=== PATIENT | male | born 1980 | race Caucasian/White ===

== ENCOUNTER 2018-12-05 21:25 | Emergency (ER) | payer OTHER ==
[~2018-12-05] VITALS: Ht 172.7 cm; Wt 93.0 kg
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
[2018-12-05 22:02] LABS: BASOPHILS # (AUTO) 0.01 x10^3/uL (0-0.1); BASOPHILS % (AUTO) 0 % (0-1); EOSINOPHILS # (AUTO) 0.03 x10^3/uL (0-0.4); EOSINOPHILS % (AUTO) 0 % (1-7); LYMPHOCYTES # (AUTO) 2.21 x10^3/uL (1-3.4); LYMPHOCYTES % (AUTO) 22 % (22-44); MD NO; MEAN CORPUSCULAR HEMOGLOBIN 30.8 pg (27.5-34.5); MEAN CORPUSCULAR HGB CONC 34.5 g/dL (33.2-36.2); MEAN CORPUSCULAR VOLUME 89.4 fL (81-97); MONOCYTES % (AUTO) 7 % (2-9); NEUTROPHILS # (AUTO) 7.14 x10^3/uL (1.8-6.8); NEUTROPHILS % (AUTO) 71 % (42-75); PLATELET COUNT 318 x10^3/uL (130-400); RED BLOOD COUNT 5.27 x10^6/uL (4.38-5.82)
--- NOTE | 2018-12-05 22:02 | NUR ---
SISTER [phone] [phone]
--- NOTE | 2018-12-05 22:03 | NUR ---
LABS DRAWN, UA COLLECTED AND WALKED TO LAB.
[2018-12-05 22:11] LABS: AMPHETAMINE SCREEN, URINE Negative (Negative); BARBITURATE SCREEN, URINE Negative (Negative); BENZODIAZEPINE SCREEN, URINE Negative (Negative); CANNABINOID SCREEN, URINE Negative (Negative); COCAINE SCREEN, URINE Negative (Negative); METHADONE SCREEN, URINE Negative (Negative); OPIATE SCREEN, URINE Negative (Negative)
[2018-12-05 22:13] LABS: ALANINE AMINOTRANSFERASE 46 U/L (12-78); ALBUMIN 4.2 g/dL (3.4-5.0); ANION GAP 8 mmol/L (5-15); CALCIUM 9.2 mg/dL (8.5-10.1); CHLORIDE 110 mmol/L (98-107); CREATININE 1.07 mg/dL (0.7-1.3); SALICYLATE LEVEL 1.7 mg/dL (2.8-20.0)
[2018-12-05 22:15] LABS: ALKALINE PHOSPHATASE 47 U/L (45-117); BILIRUBIN,TOTAL 0.6 mg/dL (0.2-1.0); TOTAL PROTEIN 7.6 g/dL (6.4-8.2)
[2018-12-05 22:16] LABS: ACETAMINOPHEN < 2 mcg/mL (10-30)
--- NOTE | 2018-12-05 22:44 | NUR ---
ALL RESULTS BACK AT THIS TIME, REG CONTACTED FOR FULL REG. WITH PT PERMISSION SISTER YESSI UPDATED ON PT STATUS, SISTER CURRENTLY SITTING WITH PT. FAMILY UPDATED ON RULES, PT AND FAMILY COOPERATIVE WITH STAFF REQUESTS.
--- NOTE | 2018-12-05 23:05 | NUR ---
RECEIVED REPORT FROM JOHN ELON RN TO ASSUME CARE OF PT.
--- NOTE | 2018-12-05 23:42 | NUR ---
PT. RESTING ON GURNEY IN SITTING POSITION, VISITING WITH FAMILY AT BS. PT. CALM AND COOPERATIVE. NADN. DENIES NEEDS. ROOM IS SECURED AND SITTER IN [place].
--- NOTE | 2018-12-06 00:03 | NUR ---
PACKET FAXED TO [facility]. AWAITING CONFIRMATION FAX.
--- NOTE | 2018-12-06 00:39 | NUR ---
BREAK RN: PT SLEEPING. EVEN RISE AND FALL OF CHEST OBSERVED. SITTER IN VIEW OF PT
--- NOTE | 2018-12-06 01:03 | NUR ---
CALLED 2N; NO BEDS AVAILABLE.
--- NOTE | 2018-12-06 01:03 | NUR ---
CONFIRMATION FAX RECEIVED FROM [facility].
[2018-12-06] MEDS ORDERED: ACETAMINOPHEN 325 MG TABLET PO PRN (01:30)
[2018-12-06] MEDS ORDERED: DOCUSATE 100 MG CAPSULE PO PRN (01:30)
[2018-12-06] MEDS ORDERED: LORazepam 0.5MG TABLET PO PRN (01:30)
[2018-12-06] MEDS ORDERED: ONDANSETRON ODT 4 MG PO PRN (01:30)
--- NOTE | 2018-12-06 01:46 | NUR ---
PT. RESTING ON GURNEY RIGHT SIDE LYING WITH EYES CLOSED. RESP VISIBLE AND NON-LABROED. NADN.
[2018-12-06] MEDS ORDERED: PLEASE ENTER ALLERGIES MC SCH (02:00)
--- NOTE | 2018-12-06 02:43 | NUR ---
PT. CONTINUES RESTING ON GURNEY WITH EYES CLOSED. NADN. RESP VISIBLE AND NON-LABORED. ROOM REMAINS SECURED. SITTER IN [place].
--- NOTE | 2018-12-06 03:58 | NUR ---
PT. REMAINS ON GURNEY IN SUPINE POSITION WITH EYES CLOSED. NADN. EVEN CHEST RISE/FALL VISIBLE. ROOM SECURED. SITTER IN [place].
--- NOTE | 2018-12-06 04:50 | NUR ---
PT. REMAINS ON GURNEY IN SUPINE POSITION WITH EYES CLOSED. NADN. EVEN CHEST RISE/FALL VISIBLE. ROOM SECURED. SITTER IN [place].
--- NOTE | 2018-12-06 05:49 | NUR ---
PT. CONTINUES RESTING ON HOSPITAL BED WITH EYES CLOSED. EVEN, NON-LABORED RESPIRATIONS VISIBLE. ROOM REMAINS SECURED. SITTER IN [place].
--- NOTE | 2018-12-06 06:05 | NUR ---
PT. MOVED OVER TO HOSPITAL BED. PT. OFFERED SNACKS/DRINKS. DENIES NEEDS AT THIS TIME. MEAL TRAY ORDERED. PT HAS CALL LIGHT IN REACH. ROOM REMAINS SECURED. SITTER IN [place].
[2018-12-06 06:52] LABS: BASOPHILS # (AUTO) 0.08 x10^3/uL (0-0.1); BASOPHILS % (AUTO) 1 % (0-1); EOSINOPHILS # (AUTO) 0.17 x10^3/uL (0-0.4); EOSINOPHILS % (AUTO) 2 % (1-7); LYMPHOCYTES % (AUTO) 33 % (22-44); MD NO; MEAN CORPUSCULAR HGB CONC 34.3 g/dL (33.2-36.2); MEAN CORPUSCULAR VOLUME 90.5 fL (81-97); MEAN PLATELET VOLUME 8.9 fL (7.4-10.4); MONOCYTES # (AUTO) 0.81 x10^3/uL (0.2-0.8); MONOCYTES % (AUTO) 7 % (2-9); NEUTROPHILS # (AUTO) 6.41 x10^3/uL (1.8-6.8); NEUTROPHILS % (AUTO) 57 % (42-75); PLATELET COUNT 298 x10^3/uL (130-400); RED BLOOD COUNT 5.12 x10^6/uL (4.38-5.82); RED CELL DISTRIBUTION WIDTH 13.2 % (9.4-14.8)
--- NOTE | 2018-12-06 07:05 | NUR ---
REPORT TO JANA DELEON. PT. RESTING ON HOSPITAL BED. WITH PELONN. DENIES NEEDS.
--- NOTE | 2018-12-06 07:37 | NUR ---
LATE NOTE FOR 704: Recieved bedside report from JANA Zhao. All questions answered. Assuming care of pt. Pt sleeping on hospital bed with T.V. on. NADN. Pt has unlabored respirations with even chest rise and fall. No needs expressed at this time. Sitter near doorway in direct line of sight for observation.
--- NOTE | 2018-12-06 08:18 | NUR ---
Provided pt breakfast tray. Pt wakes up and begins eating breakfast tray. Pt says, "Thank you." Sitter near doorway in direct line of sight for observation.
[2018-12-06 09:21] VITALS: BP 128/68
--- NOTE | 2018-12-06 11:08 | NUR ---
LATE NOTE FOR 0930: Pt denies SI or HI at this time. Pt cooperative with staff for assessment and vital signs. Pt denies needs at this time.
--- NOTE | 2018-12-06 11:09 | NUR ---
LATE NOTE ENTRY FOR 1020: blast furnace keeper helper at bedside dressing pt's left forearm per pt request. NADN. No needs expressed. Pt awake watching T.V. resting on hospital bed. Sitter near doorway in direct line of sight for observation.
--- NOTE | 2018-12-06 11:10 | NUR ---
Pt resting on hospital bed watching T.V. NADN. No needs expressed. Sitter near doorway in direct line of sight for observation. Lunch tray ordered.
--- NOTE | 2018-12-06 12:07 | NUR ---
Provided bedside report to JANA Bennett. All questions answered. JANA Bennett to assume care of pt's at this time.
--- NOTE | 2018-12-06 12:40 | NUR ---
REPORT FROM PANCHO BATES AT 1200. MEAL TRAY PROVIDED, SITTER REMAINS AT DOORWAY FOR CLOSE OBS.
--- NOTE | 2018-12-06 13:42 | NUR ---
PT SLEEPING, NAD, SITTER AT DOORWAY.
--- NOTE | 2018-12-06 14:43 | NUR ---
REPORT PROVIDED TO MANNY ON [address]E. DR KEVIN CALLED TO REQUEST DISCHARGE ORDER. CHART REVIEWED, PT'S ORIGINAL LEGAL HOLD TO GO WITH CHART TO 3E ALONG WITH BELONGING BAG.
== END 2018-12-06 14:57 ==
LOC: ED 22:56 → EDIP 22:58 → UNDOADMIN 22:58 → ED 12-06 14:57
DX: R45.851 Suicidal ideations (principal)
CPT/HCPCS: 36415; 80053; 80307; 84443; 85025; 99285

== ENCOUNTER 2018-12-06 13:52 | Inpatient (IN) | payer OTHER ==
[~2018-12-06] VITALS: Ht 172.7 cm; Wt 94.8 kg
[2018-12-06] MEDS ORDERED: BISACODYL 10 MG SUPP PR PRN (14:30)
[2018-12-06] MEDS ORDERED: POLYETHYLENE GLYCOL 17 GM PACKET PO PRN (14:30)
[2018-12-06] MEDS ORDERED: DOCUSATE 100 MG CAPSULE PO PRN (14:30)
[2018-12-06] MEDS ORDERED: ACETAMINOPHEN 325 MG TABLET PO PRN (14:30)
[2018-12-06] MEDS ORDERED: ONDANSETRON ODT 4 MG PO PRN (14:30)
[2018-12-06 15:14] VITALS: BP 139/76
[2018-12-06 15:59] VITALS: BP 139/76
[2018-12-06 19:26] VITALS: BP 124/74
[2018-12-06] MEDS ORDERED: MELATONIN 5 MG TABLET PO PRN (21:00)
[2018-12-07 04:22] LABS: MICROSCOPIC AUTO
[2018-12-07 04:27] LABS: CULTURE INDICATED? NO
[2018-12-07 04:51] LABS: CHOL/HDL RATIO 3.9; FREE T4 (FREE THYROXINE) 1.11 ng/dL (0.76-1.46); LDL/HDL RATIO 2.2 (0.5-3.0); THYROID STIMULATING HORMONE 1.28 mIU/L (0.358-3.740)
[2018-12-07 07:24] VITALS: BP 117/69
[2018-12-07 19:47] VITALS: BP 127/72
[2018-12-08 07:08] VITALS: BP 124/74
[2018-12-08 19:38] VITALS: BP 135/81
[2018-12-09 07:22] VITALS: BP 128/70
[2018-12-09 19:37] VITALS: BP 134/83
[2018-12-10 07:10] VITALS: BP 119/69
[2018-12-10 19:49] VITALS: BP 151/92
[2018-12-11 07:38] VITALS: BP 125/77
== END 2018-12-11 14:55 | disposition home or self-care (01) | DRG 881 ==
LOC: 3E 15:02
PROVIDERS: ADMIT Psychiatry & Neurology Psychosomatic Medicine; ATTEND Psychiatry & Neurology Psychosomatic Medicine
DX: F32.9 Major depressive disorder, single episode, unspecified (principal); R45.851 Suicidal ideations; Z63.0 Problems in relationship with spouse or partner; Z90.49 Acquired absence of other specified parts of digestive tract
CPT/HCPCS: 36415; 71045; 80061; 81001; 82140; 82607; 84439; 84443; 86592; 93005